=== PATIENT | female | born 1950 | race Caucasian/White ===

== ENCOUNTER 2017-10-12 10:46 | Outpatient (CLI) | payer MEDICARE, BC | END 2017-10-12 10:47 | disposition home or self-care (01) | LOC: CTENTCT 10:46 | PROVIDERS: ATTEND Otolaryngology Plastic Surgery within the Head & Neck | DX: J32.9 Chronic sinusitis, unspecified (principal) | CPT/HCPCS: 70486 ==

== ENCOUNTER 2017-10-21 08:53 | Day surgery (SDC) | payer MEDICARE, BC ==
[2017-10-20 16:15] VITALS: BMI 44.0
[2017-10-21] MEDS ORDERED: Oxymetazoline HCl 0.05% ( 15 ML ) ONE ×2 (10:07→10:27)
[2017-10-21] MEDS ORDERED: Bacitracin Zinc Ointment 30 gm TUBE ONE (10:27)
[2017-10-21] MEDS ORDERED: Ondansetron HCl/PF 4 MG/2 ML Vial ONE ×2 (10:29→15:25)
[2017-10-21] MEDS ORDERED: Fentanyl 100 MCG/2 ML VIAL ONE ×2 (10:29→11:53)
[2017-10-21 10:58] LABS: #Eosinphils 0.3 thou/uL (0.0-0.7); #Lymphocytes 1.7 thou/uL (1.20-3.40); #Monocytes 0.4 thou/uL (0.11-0.59); #Neutrophils 3.9 thou/uL (1.40-6.50); %Basophils 0.5 % (0.0-1.0); %Eosinophils 5.1 % (0.0-10.0); %Lymphocytes 26.8 % (21.0-51.0); %Monocytes 6.7 % (0.0-10.0); Hemoglobin 12.2 g/dL (12.0-16.0); Mean Corpuscular HGB CONC 33.3 g/dL (32.0-36.0); Mean Corpuscular Hemoglobin 30.3 pg (27.0-31.0); Mean Platelet Volume 7.9 fL (7.4-10.4); Platelet Count 209 thou/uL (130-400); RBC Distribution Width 13.5 % (11.5-14.5); Red Blood Cell (RBC) Count 4.02 mill/uL (4.20-5.40); White Blood Cell (WBC) Count 6.4 thou/uL (4.8-10.8)
[2017-10-21 11:16] LABS: Anion Gap 12 mmol/L (10-20); BUN (Urea Nitrogen) 30 mg/dL (9.8-20.1); Calc. Creatinine Clearance 68 mL/min (70-130); Calcium 9.9 mg/dL (7.8-10.44); Carbon Dioxide 26 mmol/L (23-31); Chloride 104 mmol/L (98-107); Estimated GFR-MDRD 40; Glucose 112 mg/dL (80-115); Potassium 4.4 mmol/L (3.5-5.1); Sodium 138 mmol/L (136-145)
[2017-10-21] MEDS ORDERED: Promethazine HCl 25 MG/ML VIAL ONE (12:07)
[2017-10-21] MEDS ORDERED: Succinylcholine Chloride 20 MG/ML 10 ml SYRINGE FS ONE (15:25)
[2017-10-21] MEDS ORDERED: PROPOFOL 200 MG/20 ML VIAL ONE (15:25)
[2017-10-21] MEDS ORDERED: Lidocaine 1% PF 5 ML VIAL ONE (15:25)
[2017-10-21] MEDS ORDERED: Dexamethasone 20 MG/5 ML VIAL ONE (15:25)
--- NOTE | 2017-10-21 21:17 | OP ---
DATE OF PROCEDURE: 10/21/2017 PREOPERATIVE DIAGNOSES: 1. Chronic rhinosinusitis with frontal and sphenoidal air cells. 2. Bilateral inferior turbinate hypertrophy. 3. Nasal obstruction. POSTOPERATIVE DIAGNOSES: 1. Chronic rhinosinusitis with frontal, and sphenoidal air cells. 2. Bilateral inferior turbinate hypertrophy. 3. Nasal obstruction. PROCEDURES: 1. Bilateral endoscopic sinus surgery, total ethmoidectomies. 2. Bilateral endoscopic sinus surgery, maxillary antrostomies. 3. Bilateral endoscopic sinus surgery, sphenoidotomies. 4. Bilateral endoscopic sinus surgery, frontal sinusotomies. 5. Bilateral inferior turbinate submucosal resection. SURGEON: Benito Power MD ESTIMATED BLOOD LOSS: 20 mL. COMPLICATIONS: None. ANESTHESIA: GETA. PROCEDURE IN DETAIL: The patient was taken to the operating room and placed supine on the table. Ge neral endotracheal anesthesia was obtained by the Anesthesia staff. Tube was secured in the left low er lip and the patient was placed in the beach-chair position. Following this, Afrin pledgets were r emoved from the nasal cavity and the patient was prepped and draped for standard nasal procedure. Fo llowing this, 0-degree endoscope was advanced into the nasal cavity. 1% lidocaine with 1:100,000 epi nephrine was injected via a 27-gauge needle into the inferior turbinates, middle turbinates, and late ral nasal wall bilaterally. Following this, middle turbinates were gently medialized and the uncinat e process was identified and was anteriorly fractured using the ball-ended probe bilaterally. The 0- degree microdebrider and upbiting Blakesley forceps were used to remove the uncinate bilaterally. Fo llowing this, a curved microdebrider and the 0-degree scope were used to identify the maxillary sinus ostia. Following this, the ethmoidal bulla was identified and was punctured on its medial and infer ior aspect and was removed using the microdebrider. Following this, the grand lamella was then ident ified and was punctured into the posterior ethmoidal cells working from posterior. Following this, e thmoidal bulla was identified and was punctured on its medial and inferior aspect and was removed usi ng the microdebrider. Following this, the grand lamella was identified and was punctured into the po sterior ethmoidal cells. Then, working from posterior to anterior, the ethmoidal cells were opened b ilaterally using a microdebrider and upbiting Blakesley forceps. Following this, the sphenoid sinus was approached through the previous ethmoidectomies. The attachment of superior turbinate to the pos terior nasal wall was identified. Staying just medial and inferior to its attachment to the posterio r nasal wall, sphenoidotomies were created using the Villanueva-tip suction. They were then widened araceli aterally using the 0-degree microdebrider. Following this, a 45-degree scope and the 40-degree micro debrider blade were then used to further open the frontal recess cells, as well as to open the fronta l sinus ostia bilaterally. Following this, inferior turbinates were punctured on the anterior-inferi or quadrant with the mucosal resection performed of the anterior-inferior portions of the inferior tu rbinates bilaterally. The patient tolerated the procedure well.
--- NOTE | 2017-10-22 06:22 | EKG ---
Test Reason : PREOP Blood Pressure : / mmHG Vent. Rate : 064 BPM Atrial Rate : 064 BPM P-R Int : 180 ms QRS Dur : 082 ms QT Int : 390 ms P-R-T Axes : 051 014 033 degrees QTc Int : 402 ms Normal sinus rhythm Normal ECG When compared with ECG of 20-SEP-2015 03:01, No significant change was found Confirmed by WADE MOCK ([id number]) on 10/22/2017 6:00:31 AM Referred By: MARIELOS Confirmed By:WADE MOCK
== END 2017-10-21 14:13 | disposition home or self-care (01) ==
LOC: SDC 08:53
PROVIDERS: ATTEND Otolaryngology Plastic Surgery within the Head & Neck
PROC: 09TL8ZZ Resection of Nasal Turbinate, Via Natural or Artificial Opening Endoscopic (ICD-10-PCS; principal; 2017-10-21)
PROC: 09BT8ZZ Excision of Left Frontal Sinus, Via Natural or Artificial Opening Endoscopic (ICD-10-PCS; 2017-10-21)
PROC: 09BW8ZZ Excision of Right Sphenoid Sinus, Via Natural or Artificial Opening Endoscopic (ICD-10-PCS; 2017-10-21)
PROC: 09BX8ZZ Excision of Left Sphenoid Sinus, Via Natural or Artificial Opening Endoscopic (ICD-10-PCS; 2017-10-21)
PROC: 09BQ8ZZ Excision of Right Maxillary Sinus, Via Natural or Artificial Opening Endoscopic (ICD-10-PCS; 2017-10-21)
PROC: 09BR8ZZ Excision of Left Maxillary Sinus, Via Natural or Artificial Opening Endoscopic (ICD-10-PCS; 2017-10-21)
PROC: 09BS8ZZ Excision of Right Frontal Sinus, Via Natural or Artificial Opening Endoscopic (ICD-10-PCS; 2017-10-21)
PROC: 09TV8ZZ Resection of Left Ethmoid Sinus, Via Natural or Artificial Opening Endoscopic (ICD-10-PCS; 2017-10-21)
PROC: 09TU8ZZ Resection of Right Ethmoid Sinus, Via Natural or Artificial Opening Endoscopic (ICD-10-PCS; 2017-10-21)
DX: J32.9 Chronic sinusitis, unspecified (principal); J34.3 Hypertrophy of nasal turbinates; J34.89 Other specified disorders of nose and nasal sinuses; F32.9 Major depressive disorder, single episode, unspecified; E11.9 Type 2 diabetes mellitus without complications; J30.9 Allergic rhinitis, unspecified; I10 Essential (primary) hypertension; K21.9 Gastro-esophageal reflux disease without esophagitis; M19.90 Unspecified osteoarthritis, unspecified site; I25.10 Atherosclerotic heart disease of native coronary artery without angina pectoris; Z87.891 Personal history of nicotine dependence; Z88.5 Allergy status to narcotic agent; Z79.82 Long term (current) use of aspirin; Z79.84 Long term (current) use of oral hypoglycemic drugs; Z79.899 Other long term (current) drug therapy
CPT/HCPCS: 80048; 93005; 93010; 96374; J0131; J1100; J2001; J2405; J2550; J2704; J3010

== ENCOUNTER 2017-11-03 09:10 | Outpatient (CLI) | payer MEDICARE, BC | END 2017-11-03 09:11 | disposition home or self-care (01) | LOC: BICMAMMO 09:10 | PROVIDERS: ATTEND Family Medicine | DX: Z12.31 Encounter for screening mammogram for malignant neoplasm of breast (principal) | CPT/HCPCS: 77063; 77067 ==

== ENCOUNTER 2017-12-15 16:07 | Observation (INO) | payer MEDICARE, BC ==
[~2017-12-15 16:07] MED LIST: ADENOSINE 60 MG/20 ML VIAL ONE
[2017-12-15 18:03] LABS: Troponin I Less than 0.010 ng/mL (< 0.028)
[2017-12-15 20:56] LABS: Troponin I Less than 0.010 ng/mL (< 0.028)
[2017-12-15] MEDS ORDERED: Sodium Chloride 0.9% 1,000 ML IV SCH ×2 (22:43→23:30)
[2017-12-15] MEDS ORDERED: Ondansetron HCl/PF 4 MG/2 ML Vial IVP PRN (22:43)
[2017-12-15] MEDS ORDERED: Ondansetron ODT 4 MG TAB SL PRN (22:43)
[2017-12-15 22:58] VITALS: BMI 45.8
[2017-12-15] MEDS ORDERED: Polyethylene Glycol 3350 17 GM Packet PO SCH (23:45)
[2017-12-15] MEDS ORDERED: Gabapentin 300 MG CAP PO SCH (23:45)
[2017-12-16 00:05] LABS: Troponin I Less than 0.010 ng/mL (< 0.028)
--- NOTE | 2017-12-16 00:07 | HP ---
PRIMARY CARE PHYSICIAN: Dr. Yolanda Abreu. REASON FOR ADMISSION: Dyspnea on exertion, rule out acute coronary syndrome. HISTORY OF PRESENT ILLNESS: A 67-year-old female who has underlying history of coronary artery disea se with stent, who presented to [facility] with a complaint of dyspnea on exertion. Arlin villalta was experiencing that even after doing a little bit exertion, she was getting out of breath. Erik livingston has to take deep breath and with rest, she was feeling better after while. She was not experiencin g any chest pain, palpitation, dizziness, or syncope, but these symptoms are pretty much new for her that was bothered her. She was experiencing shortness of breath even after talking. She feels that her capacity significantly reduced. She did not have any orthopnea, PND, or leg swelling. She denie s any pleuritic chest pain. She denies any cough. She denies any fever. She denies any urinary tra ct infection symptoms. She denies any calf tenderness. She denies any immobilization or recent shelbi el. Patient was evaluated at [facility]. Over there, she was hemodynamically stable. Her b lood test showed leukocytosis. Her D-dimer was negative and her creatinine was elevated to 1.81. He r cardiac enzymes were negative and BNP was normal. Patient is being admitted in hospital for further evaluation. Patient denies any recent cardiac work up. REVIEW OF SYSTEMS: Please see my HPI for pertinent positive and negative. All other review of syste m reviewed and negative except as mentioned in the HPI: Constitutional: Weight loss or gain, abilit y to conduct usual activities. Skin: Rash, itching. Eyes: Double vision, pain. ENT/Mouth: Nose bleeding, neck stiffness, pain, tenderness. Cardiovascular: Palpitations, dyspnea on exertion, orth opnea. Respiratory: Shortness of breath, wheezing, cough, hemoptysis, fever, or night sweats. Coco rointestinal: Poor appetite, abdominal pain, heartburn, nausea, vomiting, constipation, or diarrhea. Genitourinary: Urgency, frequency, dysuria, nocturia. Musculoskeletal: Pain, swelling. Neurolog ic/Psychiatric: Anxiety, depression. Allergy/Immunologic: Skin rash, bleeding tendency. PAST MEDICAL HISTORY: Osteoarthritis, obstructive sleep apnea, CA, coronary artery disease with sten t, diabetes type 2, diabetic neuropathy, hypertension. PAST SURGICAL HISTORY: Cardiac catheterization with stent placed x3, kidney stone surgery, lower radha k surgery, hysterectomy, carpal tunnel repair bilaterally, colonoscopy, left and right foot surgery, eye surgery. PAST PSYCHIATRIC HISTORY: Anxiety and depression. SOCIAL HISTORY: Patient is an ex-smoker. She quit smoking in 1981 per patient. She denies any alco hol or other illicit drug abuse. FAMILY HISTORY: No strong family history of premature coronary artery disease, stroke, or cancer. ALLERGIES: CODEINE SULFATE. CURRENT HOME MEDICATIONS: Aspirin 325 mg p.o. daily, metformin 1 gram p.o. b.i.d., losartan with hyd rochlorothiazide 50/12.5 one tablet p.o. daily, Lipitor 20 mg p.o. at bedtime, gabapentin 300 mg p.o. 6 times a day, glucosamine chondroitin sulfate twice daily, calcium with vitamin D 1 tablet twice da aj. EMERGENCY ROOM COURSE: Reviewed. PHYSICAL EXAMINATION: VITAL SIGNS: Currently blood pressure 102/63, pulse 73, respiratory rate 19, temperature 98.7, satur ation 99% on room air, weight 106.6 kilograms. GENERAL: Patient is currently alert, awake, no obvious acute distress. HEENT: Normocephalic, atraumatic. Eyes: Pupils round, reactive to light. Extraocular muscle intac t. ENT: Oropharynx within normal limits. Moist mucous membranes, no oral lesion, no pharyngeal erythem a, no exudate. NECK: Supple, no JVD, no thyromegaly, no carotid bruit, no jugular venous distention. LUNGS: Clear to auscultation without any rhonchi or rales. CARDIAC: S1, S2 regular without any murmur. No gallop, no rub. ABDOMEN: Obesity present. Bowel sounds present, nontender, nondistended. No organomegaly, no mass, no suprapubic tenderness. BACK: Unremarkable, no CVA tenderness. EXTREMITIES: Upper extremity passive movement of all joints are normal. Lower extremities: No malou a. Good peripheral pulsation, no calf tenderness. SKIN: No skin rash. HEMATOLOGICAL SYSTEM: No lymphadenopathy. PSYCHIATRIC: Normal affect. SIGNIFICANT LABORATORY DATA: EKG showing normal sinus rhythm, LVH. Chest x-ray based on my review, no acute cardiopulmonary process. CBC: WBC 15.4, hemoglobin 12.7, platelet 256. D-dimer less than 0.27. BMP: Sodium 136, potassium 4.7, chloride 107, carbon dioxide 17, anion gap 17, BUN 44, creati nine 1.81. Glucose 195, calcium 8.7. LFT: AST 12, ALT 8, alkaline phosphatase 65, albumin 3.7. BN P 38.9. Cardiac enzymes negative x3. ASSESSMENT AND PLAN: 1. Acute on chronic kidney failure, baseline chronic kidney disease stage 3. Patient appears clinic ally dehydrated. Patient will be given gentle IV fluid with NS at 75 mL per hour. We will repeat re nal function test tomorrow morning. We will check urinalysis. 2. Dyspnea on exertion. Differential diagnosis is angina equivalent. D-dimer is negative and in th is way, we have completely excluded thromboembolic disorder, physical deconditioning and underlying r estrictive versus obstructive lung etiology needs to be excluded. At this point, we will obtain echo cardiography to assess ejection fraction and other structural abnormality, and then we will also perf orm pharmacological stress test tomorrow morning. If both tests are unremarkable, then she will need pulmonary function test as an outpatient basis. 3. Leukocytosis. Check urinalysis to rule out urinary tract infection symptoms, so to rule out urin alisha tract infection. 4. Coronary artery disease with stent. Continue patient aspirin, Lipitor as per home dosage. 5. Diabetes, type 2. Hold on metformin therapy. We will only continue with Actos 15 mg p.o. daily, insulin as per sliding scale per protocol. Diabetic diet will be given. 6. Osteoarthritis. We will hold on celecoxib as well because of renal insufficiency. We will ori nue glucosamine 1500 mg p.o. b.i.d. 7. Hypertension. Currently, patient has relatively low blood pressure. We will hold on antihyperte nsive medication with losartan/hydrochlorothiazide due to renal failure and we will resume upon disch arge. 8. Dyslipidemia. Check lipid profile tomorrow and continue Lipitor 20 mg p.o. at bedtime. 9. Morbid obesity. Dietary education given, weight loss education given. Healthy lifestyle measure s discussed with the patient. 10. Obstructive sleep apnea. Patient can use her home CPAP machine. 11. Deep venous thrombosis prophylaxis not needed, because we are expecting discharge in 24 hours. 12. Gastrointestinal prophylaxis, Pepcid 20 mg p.o. daily. CODE STATUS: Patient is FULL CODE. Patient's son is surrogate decision maker. Disposition plan based on stress test and echocardiography result as well as renal function test. Pl an of care discussed with the family member at bedside.
[2017-12-16] MEDS ORDERED: Nitroglycerin 0.4 MG TAB (25 Tab Bottle) PO PRN (02:04)
[2017-12-16] MEDS ORDERED: Guaifenesin DM 100-10/5 ML UDCUP PO PRN (02:04)
[2017-12-16] MEDS ORDERED: Senokot 8.6 MG TAB PO PRN (02:04)
[2017-12-16] MEDS ORDERED: Dextrose 50% Abboject 50 ML SYRINGE SLOW IVP PRN (02:04)
[2017-12-16] MEDS ORDERED: Loperamide HCl 2 MG CAP PO PRN (02:04)
[2017-12-16] MEDS ORDERED: HumaLOG 300 UNITS/3 ML VIAL SC PRN ×2 (02:04)
[2017-12-16] MEDS ORDERED: Mag-Al 1200 mg/1200 mg/30 ML UDCUP PO PRN (02:04)
[2017-12-16] MEDS ORDERED: Ondansetron HCl/PF 4 MG/2 ML Vial IVP PRN (02:04)
[2017-12-16] MEDS ORDERED: Zolpidem Tartrate 5 MG TAB PO PRN (02:04)
[2017-12-16] MEDS ORDERED: Ondansetron ODT 4 MG TAB PO PRN (02:04)
[2017-12-16] MEDS ORDERED: Milk Of Magnesia 30 ML UDCUP PO PRN (02:04)
[2017-12-16] MEDS ORDERED: Acetaminophen 325 MG TAB PO PRN (02:04)
[2017-12-16] MEDS ORDERED: Dextrose 5% in Water 1,000 ML IV PRN (02:04)
[2017-12-16] MEDS: Sodium Chloride 0.9% 1,000 ML IV SCH ×2 (02:18→13:50)
[2017-12-16 04:26] LABS: Bilirubin Negative (Negative); Blood, Urine Negative (Negative); Clarity CLEAR (Clear); Glucose, Urine (Dipstick) Negative (Negative); Leukocyte Negative (Negative); Nitrite Negative (Negative); Protein, Urine (Dipstick) Negative (Neg-Trace); Specific Gravity, Urine 1.014 (1.002-1.036); Urobilinogen 0.2 mg/dL (0.2-1.0); pH, Urine 5.5 (5.0-9.0)
[2017-12-16 04:29] LABS: Bacteria/HPF None Seen HPF (None Seen); Hyaline Casts/LPF 0-3 HYALINE CAST LPF (0-3 Hyaline); RBC/HPF 0-3 HPF (0-3); Squamous Epithelial None Seen HPF (0-3); WBC/HPF None Seen HPF (0-3)
[2017-12-16 05:01] LABS: #Eosinphils 0.1 thou/uL (0.0-0.7); #Monocytes 0.7 thou/uL (0.11-0.59); #Neutrophils 8.3 thou/uL (1.40-6.50); %Lymphocytes 17.7 % (21.0-51.0); %Monocytes 6.4 % (0.0-10.0); %Neutrophils 74.8 % (42.0-75.0); Hemoglobin 11.8 g/dL (12.0-16.0); Mean Corpuscular HGB CONC 34.1 g/dL (32.0-36.0); Mean Corpuscular Hemoglobin 29.7 pg (27.0-31.0); Mean Corpuscular Volume 87.2 fl (81.0-99.0); Mean Platelet Volume 8.2 fL (7.4-10.4); Platelet Count 201 thou/uL (130-400); RBC Distribution Width 12.9 % (11.5-14.5); Red Blood Cell (RBC) Count 3.97 mill/uL (4.20-5.40); White Blood Cell (WBC) Count 11.2 thou/uL (4.8-10.8)
[2017-12-16 05:28] LABS: Anion Gap 14 mmol/L (10-20); BUN (Urea Nitrogen) 44 mg/dL (9.8-20.1); Calc. Creatinine Clearance 71 mL/min (70-130); Calcium 8.8 mg/dL (7.8-10.44); Carbon Dioxide 19 mmol/L (23-31); Cardiac Risk 2.2 (Less than 4.5); Chloride 108 mmol/L (98-107); Cholesterol 115 mg/dl (< 200 Desired); Estimated GFR-MDRD 40; Glucose 136 mg/dL (80-115); HDL Cholesterol 52 mg/dL (>60 Neg Risk); LDL Cholesterol, Calculated 48 mg/dL; Potassium 4.8 mmol/L (3.5-5.1); Sodium 136 mmol/L (136-145); Triglycerides 75 mg/dL (Less than 150)
[2017-12-16] MEDS ORDERED: Calcium Carbonate + Vit D 1 TAB PO SCH (09:00)
[2017-12-16] MEDS ORDERED: Pioglitazone HCl 15 MG TAB PO SCH (09:00)
[2017-12-16] MEDS ORDERED: Polyethylene Glycol 3350 17 GM Packet PO SCH (09:00)
[2017-12-16] MEDS ORDERED: GLUCOSAMINE HCL 1500 MG PO SCH (09:00)
[2017-12-16] MEDS ORDERED: Famotidine 20 MG TAB PO SCH (09:00)
[2017-12-16] MEDS ORDERED: Atorvastatin Calcium 20 MG TAB PO SCH (09:00)
[2017-12-16] MEDS ORDERED: Aspirin 325 MG TAB PO SCH (09:00)
[2017-12-16 11:44] VITALS: BP 164/69; TEMP 98.1
--- NOTE | 2017-12-16 13:43 | NM ---
CARDIAC SPECT: CLINICAL HISTORY: 67-year-old female with dyspnea on exertion, chest pain, coronal artery disease, hypertension, diabet es, and dyslipidemia. TECHNIQUE: A stress-only myocardial perfusion scan was performed following the intravenous administration of 30 mCi technetium-99m sestamibi. Pharmacologic stress with Adenosine was monitored and interpreted by Dr Nancy Bean. FINDINGS: Homogeneous tracer distribution is seen in the myocardial segments on the post stress images. GATED SPECT LVEF: 71%. WALL MOTION EXAM: Normal. IMPRESSION: Normal post stress myocardial perfusion scan. POS: SHERLYN
--- NOTE | 2017-12-16 13:54 | DIS ---
DATE OF ADMISSION: 12/15/2017 DATE OF DISCHARGE: 12/16/2017 PRIMARY CARE PROVIDER: Yolanda Abreu D.O. DISCHARGE DISPOSITION: Discharged home. FINAL DIAGNOSES: 1. Shortness of breath, etiology unknown. 2. Chronic kidney disease stage 3. 3. History of coronary artery disease. 4. Hypertension. 5. Diabetes mellitus type 2 with chronic kidney disease 3. 6. Dyslipidemia. 7. Obesity. 8. Obstructive sleep apnea. DISCHARGE MEDICATIONS: Same as home medicines, metformin 1000 twice a day, pioglitazone 15 mg daily, losartan HCT 50/12.5 one a day, gabapentin 600 mg p.o. at bedtime, Celebrex 200 mg a day, Lipitor 20 mg a day, and aspirin 325 mg a day. ALLERGIES: CODEINE. CODE STATUS: FULL. DIET: Heart healthy. PENDING AT TIME OF DISCHARGE: Nothing. [facility]: [facility] with dyspnea on exertion. Her physical exam was unrevealing. EKG was unrevealin g. Chest x-ray was clear. D-dimer was normal. Serial cardiac enzymes were normal. She did have a creatinine of 1.31 consistent with her history of chronic kidney disease stage 3. Nuclear medicine s tress test was normal. She has 98% sat on room air. Her chest is clear. Heart, regular rate and rh ythm with no murmurs or gallop. She is being discharged to follow up with Dr. Abreu in 1 week. PROCEDURES: None. CONSULTATIONS: None.
[2017-12-16] MEDS ORDERED: Gabapentin 300 MG CAP PO SCH (21:00)
== END 2017-12-16 14:25 | disposition home or self-care (01) ==
LOC: ERS 16:07 → 2SW 18:14
PROVIDERS: ADMIT Internal Medicine; ATTEND Internal Medicine
DX: R06.02 Shortness of breath (principal); I12.9 Hypertensive chronic kidney disease with stage 1 through stage 4 chronic kidney disease, or unspecified chronic kidney disease; E11.22 Type 2 diabetes mellitus with diabetic chronic kidney disease; N18.3 Chronic kidney disease, stage 3 (moderate); E11.40 Type 2 diabetes mellitus with diabetic neuropathy, unspecified; E66.9 Obesity, unspecified; G47.33 Obstructive sleep apnea (adult) (pediatric); I25.10 Atherosclerotic heart disease of native coronary artery without angina pectoris; Z79.82 Long term (current) use of aspirin; Z79.899 Other long term (current) drug therapy; Z88.5 Allergy status to narcotic agent; Z95.5 Presence of coronary angioplasty implant and graft
CPT/HCPCS: 78452; 80048; 80061; 81001; 82962; 84484; 85025; 93005; 93017; 96360; 96361; 99285; A9500; G0378; 36415; 36416; A4216; J0153

== ENCOUNTER 2022-05-19 12:08 | Outpatient (CLI) | payer MEDICARE, OTHER | END 2022-05-19 12:09 | disposition home or self-care (01) | LOC: BICMAMMO 12:08 | PROVIDERS: ATTEND Family Medicine | DX: Z12.31 Encounter for screening mammogram for malignant neoplasm of breast (principal) | CPT/HCPCS: 77063; 77067 ==

== ENCOUNTER 2023-02-26 10:04 | Inpatient (IN) | payer MEDICARE ==
[2023-02-26] MEDS ORDERED: Nitroglycerin 0.4 MG TAB (25 Tab Bottle) SL PRN (11:57)
[2023-02-26] MEDS ORDERED: Acetaminophen 325 MG TAB PO PRN (11:58)
[2023-02-26] MEDS ORDERED: Zolpidem Tartrate 5 MG TAB PO PRN (11:58)
[2023-02-26] MEDS ORDERED: Milk Of Magnesia 30 ML UDCUP PO PRN (11:59)
[2023-02-26] MEDS ORDERED: Aspirin 325 mg Enteric Coated Tablet PO SCH (12:00)
[2023-02-26] MEDS ORDERED: HOLD HYPOGLYCEMIC MEDS AM OF CATH FS SCH (12:00)
[2023-02-26 12:29] VITALS: BMI 44.1
[2023-02-26 12:57] LABS: #Basophils 0.1 thou/uL (0.0-0.2); #Eosinphils 0.5 thou/uL (0.0-0.7); #Monocytes 0.8 thou/uL (0.11-0.59); #Neutrophils 6.4 thou/uL (1.40-6.50); %Basophils 0.5 % (0.0-1.0); %Eosinophils 5.1 % (0.0-10.0); %Lymphocytes 20.2 % (21.0-51.0); %Monocytes 7.8 % (0.0-10.0); Hematocrit 30.1 % (36.0-47.0); Hemoglobin 9.6 g/dL (12.0-16.0); Mean Corpuscular HGB CONC 31.9 g/dL (32.0-36.0); Mean Corpuscular Hemoglobin 29.9 pg (27.0-31.0); Mean Corpuscular Volume 93.8 fl (78.0-98.0); Mean Platelet Volume 10.8 fL (7.4-10.4); Platelet Count 201 10x3/uL (130-400); RBC Distribution Width 13.3 % (11.5-14.5); Red Blood Cell (RBC) Count 3.21 mill/uL (4.20-5.40); White Blood Cell (WBC) Count 9.7 10x3/uL (4.8-10.8)
[2023-02-26 13:27] LABS: ALT (SGPT) Less than 7 U/L (8-55); AST (SGOT) 14 U/L (5-34); Albumin 3.3 g/dL (3.4-4.8); Alkaline Phosphatase 81 U/L (40-110); Anion Gap 14 mmol/L (10-20); BUN (Urea Nitrogen) 38 mg/dL (9.8-20.1); Bilirubin, Total 0.4 mg/dL (0.2-1.2); Calc. Creatinine Clearance 29 mL/min (70-130); Calcium 8.4 mg/dL (7.8-10.44); Carbon Dioxide 21 mmol/L (23-31); Cardiac Risk 2.8 (Less than 4.5); Chloride 107 mmol/L (98-107); Cholesterol 119 mg/dl (< 200 Desired); Estimated GFR 17; Globulin 3.3 g/dL (2.4-3.5); Glucose 136 mg/dL (83-110); HDL Cholesterol 43 mg/dL (>60 Neg Risk); LDL Cholesterol, Calculated 49 mg/dL; Potassium 4.7 mmol/L (3.5-5.1); Protein, Total 6.6 g/dL (5.8-8.1); Sodium 137 mmol/L (136-145); Triglycerides 134 mg/dL (Less than 150)
[2023-02-26] MEDS: Sodium Chloride 0.9% 1,000 ML IV SCH (16:19)
[2023-02-26] MEDS ORDERED: Polyethylene Glycol 3350 17 GM Packet PO PRN (17:35)
[2023-02-26] MEDS: Sodium Bicarbonate Tab 325 MG TAB PO SCH (20:26)
[2023-02-26] MEDS: Calcium Carbonate 600 MG + Vit D TAB PO SCH (20:26)
[2023-02-26] MEDS: Gabapentin 300 MG CAP PO SCH (20:26)
[2023-02-26] MEDS: Atorvastatin Calcium 20 MG TAB PO SCH (20:26)
[2023-02-26] MEDS: Docusate 100 MG CAP PO SCH (20:27)
[2023-02-26] MEDS ORDERED: GLUCOSAMINE HCL 1500 MG PO SCH (21:00)
[2023-02-26] MEDS ORDERED: DC ENOXAPARIN NIGHT BEFORE CATH TOP SCH (22:00)
[2023-02-27] MEDS: Sodium Chloride 0.9% 1,000 ML IV SCH (01:20)
[2023-02-27 05:18] LABS: Anion Gap 14 mmol/L (10-20); BUN (Urea Nitrogen) 35 mg/dL (9.8-20.1); Calc. Creatinine Clearance 31 mL/min (70-130); Calcium 8.8 mg/dL (7.8-10.44); Carbon Dioxide 23 mmol/L (23-31); Chloride 106 mmol/L (98-107); Estimated GFR 18; Glucose 109 mg/dL (83-110); Potassium 4.8 mmol/L (3.5-5.1); Sodium 138 mmol/L (136-145)
[2023-02-27] MEDS ORDERED: Sodium Chloride 0.9% 1,000 ML IV SCH ×3 (06:00→15:30)
[2023-02-27] MEDS ORDERED: Lidocaine 1% (PF) 30 ML VIAL ONE (06:15)
[2023-02-27] MEDS ORDERED: Nitroglycerin 50 MG/250 ML BOT 0 ML ONE (06:15)
[2023-02-27] MEDS ORDERED: Heparin 10,000 UNITS/ 10 ML VIAL ONE (06:15)
[2023-02-27] MEDS: Sodium Bicarbonate Tab 325 MG TAB PO SCH ×2 (06:19→23:05)
[2023-02-27] MEDS: Levothyroxine Sodium 50 MCG TAB PO SCH (06:19)
[2023-02-27] MEDS ORDERED: fentaNYL 50 mcg/mL 1 mL Vial ONE (07:48)
[2023-02-27] MEDS ORDERED: Midazolam HCl 2 mg/2 ml Vial ONE (07:48)
[2023-02-27] MEDS ORDERED: Protamine Sulfate 50 MG/5 ML VIAL ONE (08:41)
[2023-02-27] MEDS ORDERED: hydrALAZINE 20 MG/ML VIAL ONE (08:41)
[2023-02-27] MEDS ORDERED: Hydrochlorothiazide 25 MG TAB PO SCH (09:00)
[2023-02-27] MEDS ORDERED: Nitroglycerin 0.4 MG TAB (25 Tab Bottle) SL PRN (09:08)
[2023-02-27] MEDS ORDERED: Sodium Chloride 0.9% 200 ML IV PRN (09:08)
[2023-02-27] MEDS: Docusate 100 MG CAP PO SCH ×2 (10:04→20:55)
[2023-02-27] MEDS: Venlafaxine HCl XR 150 MG CAP PO SCH (10:05)
[2023-02-27] MEDS: Calcium Carbonate 600 MG + Vit D TAB PO SCH ×2 (10:05→20:55)
[2023-02-27] MEDS: Aspirin 325 mg Enteric Coated Tablet PO SCH (10:05)
[2023-02-27] MEDS ORDERED: diphenhydrAMINE 25 MG CAP PO SCH (10:30)
[2023-02-27] MEDS ORDERED: Iopamidol 370 76% 100 ML VIAL ONE (10:57)
[2023-02-27 16:17] LABS: Calcium, Ionized (arterial) 1.26 mmol/L (1.12-1.30); Carboxyhemoglobin (COHb) 0.3 gm% (0.0-3.0); Hematocrit-ABG 34 % (36.0-47.0); Hemoglobin (Hb) 11.4 g/dL (12.0-16.0); O2 Tension (PaO2), arterial 86.4 mmHg (> 70.0); Potassium - ABG Lab 4.43 mmol/L (3.70-5.30)
[2023-02-27 16:18] LABS: Puncture Site RRA
[2023-02-27] MEDS ORDERED: Lorazepam 2 MG/ML VIAL SLOW IVP PRN ×2 (16:32→16:44)
[2023-02-27] MEDS ORDERED: Sodium Bicarb 50 MEQ/50 ML VIAL ONE ×2 (16:39→17:55)
[2023-02-27] MEDS ORDERED: Morphine 2 MG/ML VIAL SLOW IVP PRN (16:48)
[2023-02-27] MEDS ORDERED: Sodium Bicarbonate 150 MEQ in Dextrose 5% in Water 1,000 ML IV SCH (17:00)
[2023-02-27] MEDS ORDERED: levETIRAcetam 500 MG/5 ML VIAL SLOW IVP SCH (17:15)
[2023-02-27] MEDS ORDERED: Lactated Ringer's 500 ML IV SCH (18:15)
[2023-02-27] MEDS ORDERED: Sodium Bicarb 50 MEQ/50 ML VIAL IVP SCH (18:45)
[2023-02-27] MEDS ORDERED: hydrALAZINE 20 MG/ML VIAL SLOW IVP SCH (19:45)
[2023-02-27] MEDS: Gabapentin 300 MG CAP PO SCH (20:55)
[2023-02-27] MEDS: Atorvastatin Calcium 20 MG TAB PO SCH (20:55)
[2023-02-28 03:55] LABS: Actual Bicarbonate (HCO3v) 28.3 mEq/L (22-28); Base Excess 3.9 mEq/L (-2.0 to +3.0); Calcium, Ionized (venous) 1.05 mmol/L (1.16-1.32); Chloride (VBG) 102 mmol/L (98-106); Hematocrit-VBG 29 % (36.0-47.0); Potassium (VBG) 4.02 mmol/L (3.70-5.30); Sodium 138.7 mmol/L (133-146); pH (venous) 7.447 (7.32-7.43)
[2023-02-28 04:11] LABS: #Eosinphils 0.1 thou/uL (0.0-0.7); #Monocytes 0.7 thou/uL (0.11-0.59); #Neutrophils 7.6 thou/uL (1.40-6.50); %Basophils 0.3 % (0.0-1.0); %Eosinophils 0.8 % (0.0-10.0); %Monocytes 6.9 % (0.0-10.0); %Neutrophils 76.6 % (42.0-75.0); Hematocrit 26.9 % (36.0-47.0); Hemoglobin 8.8 g/dL (12.0-16.0); Mean Corpuscular HGB CONC 32.7 g/dL (32.0-36.0); Mean Corpuscular Hemoglobin 29.3 pg (27.0-31.0); Mean Corpuscular Volume 89.7 fl (78.0-98.0); Mean Platelet Volume 11.1 fL (7.4-10.4); Platelet Count 190 10x3/uL (130-400); RBC Distribution Width 13.6 % (11.5-14.5); White Blood Cell (WBC) Count 9.9 10x3/uL (4.8-10.8)
[2023-02-28] MEDS: Levothyroxine Sodium 50 MCG TAB PO SCH (06:16)
[2023-02-28] MEDS ORDERED: Lactated Ringer's 1,000 ML IV SCH (08:15)
[2023-02-28] MEDS ORDERED: Pantoprazole 40 MG VIAL IVP SCH (09:00)
[2023-02-28 10:04] LABS: ALT (SGPT) Less than 7 U/L (8-55); AST (SGOT) 11 U/L (5-34); Alkaline Phosphatase 72 U/L (40-110); Anion Gap 14 mmol/L (10-20); BUN (Urea Nitrogen) 31 mg/dL (9.8-20.1); Bilirubin, Total 0.4 mg/dL (0.2-1.2); Calc. Creatinine Clearance 0 mL/min (70-130); Calcium 8.2 mg/dL (7.8-10.44); Carbon Dioxide 26 mmol/L (23-31); Chloride 102 mmol/L (98-107); Estimated GFR 20; Globulin 2.8 g/dL (2.4-3.5); Glucose 135 mg/dL (83-110); Protein, Total 5.8 g/dL (5.8-8.1); Sodium 138 mmol/L (136-145)
[2023-02-28] MEDS: Heparin 5,000 UNITS/ML VIAL SC SCH ×2 (10:30→20:22)
[2023-02-28] MEDS: Venlafaxine HCl XR 150 MG CAP PO SCH (10:31)
[2023-02-28] MEDS: Sodium Bicarbonate Tab 325 MG TAB PO SCH ×2 (10:32→20:20)
[2023-02-28] MEDS: levETIRAcetam 500 MG/5 ML VIAL SLOW IVP SCH ×2 (10:33→20:21)
[2023-02-28] MEDS: Calcium Carbonate 600 MG + Vit D TAB PO SCH ×2 (10:33→20:21)
[2023-02-28] MEDS: Docusate 100 MG CAP PO SCH ×2 (10:34→20:21)
[2023-02-28] MEDS: Aspirin 325 mg Enteric Coated Tablet PO SCH (11:06)
[2023-02-28] MEDS: Atorvastatin Calcium 20 MG TAB PO SCH (20:21)
[2023-02-28] MEDS: Gabapentin 300 MG CAP PO SCH (20:21)
[2023-03-01] MEDS: Levothyroxine Sodium 50 MCG TAB PO SCH (05:11)
[2023-03-01 05:56] LABS: #Eosinphils 0.4 thou/uL (0.0-0.7); #Monocytes 0.6 thou/uL (0.11-0.59); #Neutrophils 4.6 thou/uL (1.40-6.50); %Basophils 0.4 % (0.0-1.0); %Eosinophils 6.1 % (0.0-10.0); %Lymphocytes 21.5 % (21.0-51.0); %Monocytes 7.9 % (0.0-10.0); Hematocrit 27.1 % (36.0-47.0); Hemoglobin 8.9 g/dL (12.0-16.0); Mean Corpuscular HGB CONC 32.8 g/dL (32.0-36.0); Mean Corpuscular Hemoglobin 29.4 pg (27.0-31.0); Mean Corpuscular Volume 89.4 fl (78.0-98.0); Platelet Count 160 10x3/uL (130-400); RBC Distribution Width 13.5 % (11.5-14.5); Red Blood Cell (RBC) Count 3.03 mill/uL (4.20-5.40); White Blood Cell (WBC) Count 7.2 10x3/uL (4.8-10.8)
[2023-03-01 06:27] LABS: ALT (SGPT) Less than 7 U/L (8-55); AST (SGOT) 16 U/L (5-34); Albumin 3.1 g/dL (3.4-4.8); Alkaline Phosphatase 72 U/L (40-110); Anion Gap 16 mmol/L (10-20); BUN (Urea Nitrogen) 27 mg/dL (9.8-20.1); Bilirubin, Total 0.7 mg/dL (0.2-1.2); Calc. Creatinine Clearance 0 mL/min (70-130); Calcium 8.7 mg/dL (7.8-10.44); Carbon Dioxide 24 mmol/L (23-31); Chloride 103 mmol/L (98-107); Estimated GFR 19; Globulin 3.3 g/dL (2.4-3.5); Glucose 84 mg/dL (83-110); Potassium 4.2 mmol/L (3.5-5.1); Protein, Total 6.4 g/dL (5.8-8.1); Sodium 139 mmol/L (136-145)
[2023-03-01] MEDS: levETIRAcetam 500 MG TAB PO SCH ×2 (08:41→21:08)
[2023-03-01] MEDS: Sodium Bicarbonate Tab 325 MG TAB PO SCH ×2 (08:41→21:08)
[2023-03-01] MEDS: Docusate 100 MG CAP PO SCH ×2 (08:41→21:09)
[2023-03-01] MEDS: Aspirin 325 mg Enteric Coated Tablet PO SCH (08:41)
[2023-03-01] MEDS: Calcium Carbonate 600 MG + Vit D TAB PO SCH ×2 (08:42→21:09)
[2023-03-01] MEDS: Heparin 5,000 UNITS/ML VIAL SC SCH ×2 (08:42→21:09)
[2023-03-01] MEDS: Venlafaxine HCl XR 150 MG CAP PO SCH (08:42)
[2023-03-01] MEDS: Gabapentin 300 MG CAP PO SCH (21:08)
[2023-03-01] MEDS: Atorvastatin Calcium 20 MG TAB PO SCH (21:08)
[2023-03-01] MEDS ORDERED: Loperamide HCl 2 MG CAP PO PRN (21:43)
[2023-03-01] MEDS ORDERED: Loperamide HCl 2 MG CAP PO SCH (21:45)
[2023-03-02] MEDS: Levothyroxine Sodium 50 MCG TAB PO SCH (05:17)
[2023-03-02 07:00] LABS: Anion Gap 12 mmol/L (10-20); BUN (Urea Nitrogen) 29 mg/dL (9.8-20.1); Calc. Creatinine Clearance 32 mL/min (70-130); Calcium 8.7 mg/dL (7.8-10.44); Carbon Dioxide 22 mmol/L (23-31); Chloride 105 mmol/L (98-107); Estimated GFR 18; Glucose 86 mg/dL (83-110); Potassium 4.1 mmol/L (3.5-5.1); Sodium 135 mmol/L (136-145)
[2023-03-02] MEDS: Aspirin 325 mg Enteric Coated Tablet PO SCH (09:07)
[2023-03-02] MEDS: Calcium Carbonate 600 MG + Vit D TAB PO SCH ×2 (09:07→21:32)
[2023-03-02] MEDS: Venlafaxine HCl XR 150 MG CAP PO SCH (09:08)
[2023-03-02] MEDS: Heparin 5,000 UNITS/ML VIAL SC SCH ×2 (09:08→21:33)
[2023-03-02] MEDS: Docusate 100 MG CAP PO SCH ×2 (09:08→21:32)
[2023-03-02] MEDS: levETIRAcetam 500 MG TAB PO SCH ×2 (09:08→21:31)
[2023-03-02] MEDS: Sodium Bicarbonate Tab 325 MG TAB PO SCH ×2 (09:08→21:33)
[2023-03-02 09:39] LABS: Actual Bicarbonate (HCO3a) 12.5 mEq/L (22-28)
[2023-03-02] MEDS: Gabapentin 300 MG CAP PO SCH (21:32)
[2023-03-02] MEDS: Atorvastatin Calcium 20 MG TAB PO SCH (21:32)
[2023-03-03 05:53] LABS: Anion Gap 14 mmol/L (10-20); BUN (Urea Nitrogen) 31 mg/dL (9.8-20.1); Calc. Creatinine Clearance 27 mL/min (70-130); Calcium 8.8 mg/dL (7.8-10.44); Carbon Dioxide 24 mmol/L (23-31); Chloride 101 mmol/L (98-107); Estimated GFR 15; Glucose 122 mg/dL (83-110); Potassium 4.2 mmol/L (3.5-5.1); Sodium 135 mmol/L (136-145)
[2023-03-03] MEDS: Levothyroxine Sodium 50 MCG TAB PO SCH (06:56)
[2023-03-03] MEDS: Venlafaxine HCl XR 150 MG CAP PO SCH (09:19)
[2023-03-03] MEDS: Aspirin 325 mg Enteric Coated Tablet PO SCH (09:19)
[2023-03-03] MEDS: Calcium Carbonate 600 MG + Vit D TAB PO SCH (09:19)
[2023-03-03] MEDS: Docusate 100 MG CAP PO SCH (09:19)
[2023-03-03] MEDS: Sodium Bicarbonate Tab 325 MG TAB PO SCH (09:19)
[2023-03-03] MEDS: Heparin 5,000 UNITS/ML VIAL SC SCH (09:19)
[2023-03-03 12:45] VITALS: BP 145/65; TEMP 98.4
== END 2023-03-03 14:15 | disposition home health service (06) | DRG 286 ==
LOC: IMCU/EMU 10:06 → OBSVTOIN 02-27 12:36 → CCU 02-27 16:18 → 2SE 02-28 11:44
PROVIDERS: ADMIT Internal Medicine Cardiovascular Disease; ATTEND Hospitalist
PROC: B2111ZZ Fluoroscopy of Multiple Coronary Arteries using Low Osmolar Contrast (ICD-10-PCS; principal; 2023-02-27)
PROC: 02HV33Z Insertion of Infusion Device into Superior Vena Cava, Percutaneous Approach (ICD-10-PCS; 2023-02-27)
PROC: B544ZZ3 Ultrasonography of Left Jugular Veins, Intravascular (ICD-10-PCS; 2023-02-27)
PROC: 4A033R1 Measurement of Arterial Saturation, Peripheral, Percutaneous Approach (ICD-10-PCS; 2023-02-27)
PROC: 4A023N7 Measurement of Cardiac Sampling and Pressure, Left Heart, Percutaneous Approach (ICD-10-PCS; 2023-02-27)
PROC: 4A043R1 Measurement of Venous Saturation, Peripheral, Percutaneous Approach (ICD-10-PCS; 2023-02-28)
PROC: 4A00X4Z Measurement of Central Nervous Electrical Activity, External Approach (ICD-10-PCS; 2023-03-02)
DX: I25.10 Atherosclerotic heart disease of native coronary artery without angina pectoris (principal); G93.41 Metabolic encephalopathy; E87.20 Acidosis, unspecified; N18.4 Chronic kidney disease, stage 4 (severe); G40.109 Localization-related (focal) (partial) symptomatic epilepsy and epileptic syndromes with simple partial seizures, not intractable, without status epilepticus; N17.9 Acute kidney failure, unspecified; T82.897A Other specified complication of cardiac prosthetic devices, implants and grafts, initial encounter; G97.82 Other postprocedural complications and disorders of nervous system; Z68.42 Body mass index [BMI] 45.0-49.9, adult; E11.65 Type 2 diabetes mellitus with hyperglycemia; Z66 Do not resuscitate; E66.01 Morbid (severe) obesity due to excess calories; D63.1 Anemia in chronic kidney disease; I12.9 Hypertensive chronic kidney disease with stage 1 through stage 4 chronic kidney disease, or unspecified chronic kidney disease; E11.22 Type 2 diabetes mellitus with diabetic chronic kidney disease; G47.33 Obstructive sleep apnea (adult) (pediatric); E11.42 Type 2 diabetes mellitus with diabetic polyneuropathy; K21.9 Gastro-esophageal reflux disease without esophagitis; G89.29 Other chronic pain; E78.5 Hyperlipidemia, unspecified; S32.010D Wedge compression fracture of first lumbar vertebra, subsequent encounter for fracture with routine healing; Z88.5 Allergy status to narcotic agent; Z88.1 Allergy status to other antibiotic agents; Z88.8 Allergy status to other drugs, medicaments and biological substances; Z87.891 Personal history of nicotine dependence; Z79.890 Hormone replacement therapy; Z79.82 Long term (current) use of aspirin; Z79.899 Other long term (current) drug therapy; Y83.8 Other surgical procedures as the cause of abnormal reaction of the patient, or of later complication, without mention of misadventure at the time of the procedure; Z90.710 Acquired absence of both cervix and uterus
CPT/HCPCS: 36415; 36416; 36600; 70450; 71045; 80048; 80053; 80061; 82805; 84443; 85025; 85347; 93005; 93010; 93454; 95712; 95819; 95957; 99152; C1769; G0378; J0360; J1644; J1953; J2001; J2250; J2720; J3010; J7050; J7070; J7120; Q9967